=== PATIENT | male | born 1960 | race Caucasian/White ===

== ENCOUNTER 2016-09-15 12:29 | Day surgery (SDC) | payer BC ==
[~2016-09-15] VITALS: Ht 180.3 cm; Wt 109.9 kg
[2016-09-15] MEDS ORDERED: ZYRTEC 10MG10 MG PO (12:45)
[2016-09-15 12:46] VITALS: BP 137/86; PULSE 93; TEMP 98.4
[2016-09-15 14:30] VITALS: BP 109/69; PULSE 84; TEMP 97.8
[2016-09-15 14:45] VITALS: BP 109/76; PULSE 88
[2016-09-15 15:49] VITALS: BP 115/75; PULSE 85
== END 2016-09-15 15:05 | disposition home or self-care (01) ==
LOC: SDCO 12:29
DX: Z12.31 Encounter for screening mammogram for malignant neoplasm of breast (principal); K64.8 Other hemorrhoids
CPT/HCPCS: OP; J2250; J3010; J7030

== ENCOUNTER 2017-10-24 17:08 | Emergency (ER) | payer BC ==
[~2017-10-24] VITALS: Ht 182.9 cm; Wt 109.1 kg
[~2017-10-24 17:08] MED LIST: ZYRTEC 10MG10 MG PO
[2017-10-24 17:14] VITALS: BP 143/83; TEMP 98.8
[2017-10-24] MEDS ORDERED: CEPHALEXIN500 M1 PO (18:04)
[2017-10-24 18:17] VITALS: PULSE 91
== END 2017-10-24 18:20 | disposition home or self-care (01) ==
LOC: COL.ER 17:08
DX: S61.211A Laceration without foreign body of left index finger without damage to nail, initial encounter (principal); S61.213A Laceration without foreign body of left middle finger without damage to nail, initial encounter; Z88.0 Allergy status to penicillin; W26.8XXA Contact with other sharp object(s), not elsewhere classified, initial encounter; Y92.009 Unspecified place in unspecified non-institutional (private) residence as the place of occurrence of the external cause